=== PATIENT | female | born 1950 | race Caucasian/White ===

== ENCOUNTER 2016-10-11 07:31 | Day surgery (SDC) | payer OTHER, MEDICARE ==
[~2016-10-11] VITALS: Ht 170.2 cm; Wt 81.6 kg
[~2016-10-11 07:31] MED LIST: ASPI81TA82 PO; COZA100T PO; EZET10 PO; FISHCAP PO; FURO1TAB93 PO; GABA300C3 PO; METF500 PO; POTA75TA PO; VITA100018 PO
[2016-10-11 07:56] VITALS: BP 157/79; PULSE 83; RESP 20; TEMP 98.5; O2SAT 94
[2016-10-11] MEDS ORDERED: ceFAZolin 2 GM PREMIX 50 ML IV SCH (08:15)
[2016-10-11 08:32] LABS: APTT (PATIENT) 23.8 SEC (24.3-30.1); PROTHROMBIN TIME - PATIENT 10.8 SEC (9.8-11.6)
[2016-10-11 08:41] LABS: AUTOMATED NEUTROPHIL # 4.4 TH/MM3 (1.8-7.7); BASOPHIL % 0.2 % (0.0-2.0); EOSINOPHIL # 0.1 TH/MM3 (0-0.4); EOSINOPHIL % 2.6 % (0.0-4.0); HEMO FLAGS DIFF FINAL; LYMPHOCYTE # 0.6 TH/MM3 (1.0-4.8); MEAN CORPUSCULAR HEMOGLOBIN 30.6 PG (27.0-34.0); MEAN CORPUSCULAR HGB CONC 33.7 % (32.0-36.0); MONO % 7.9 % (0.0-8.0); NEUT % 79.3 % (16.0-70.0); PLATELET COUNT 193 TH/MM3 (150-450); RED BLOOD COUNT 4.62 MIL/MM3 (4.00-5.30); RED CELL DISTRIBUTION WIDTH 16.1 % (11.6-17.2); WHITE BLOOD COUNT 5.6 TH/MM3 (4.0-11.0)
[2016-10-11] MEDS ORDERED: fentaNYL CITRATE 250 MCG/5 ML AMP ONE (09:31)
[2016-10-11] MEDS ORDERED: MIDAZOLAM HCL 5 MG/5 ML VIAL ONE (09:31)
[2016-10-11] MEDS ORDERED: LIDOCAINE 1%/EPINEPHrine 1:100,000 SOLN 20 ML VIAL ONE (09:46)
[2016-10-11 10:15] VITALS: BP 145/72; PULSE 85; RESP 16; TEMP 98.4; O2SAT 93
--- NOTE | 2016-10-11 10:24 | PD.RAD ---
Post Procedure Progress Note Pre Procedure Diagnosis: (1) Anal cancer Post Procedure Diagnosis: (1) Anal cancer Procedure Date: Oct 11, 2016 Supervising Radiologist: Celestino Delgadillo JR Proceduralist/Assist: Beth Ivey, RT(R), Anu Chappell, RT(R) Anesthesia: Conscious Sedation Plan of Activity Patient to Unit: ROPU Patient Condition: Good See PACS Report for procedural detail/treatment Central Venous Access Device Procedure 1 Right Internal Jugular Infusaport Removal Findings: Port removed in its entirety. Plan F/U with IR or a physician in 10-14 days for a site check Jr. Elie,Celestino Agosto MD Oct 11, 2016 10:24
[2016-10-11 10:30] VITALS: BP 138/70; PULSE 82; RESP 16; O2SAT 93
[2016-10-11 11:30] VITALS: BP 138/70; PULSE 84; RESP 16; O2SAT 96
--- NOTE | 2016-10-18 23:31 | RADRPT ---
EXAM DATE/TIME: 10/11/2016 07:59 [facility] COMPARISON: No previous studies available for comparison. INDICATIONS : Patient with history of cancer completed treatment, no longer needs port. MEDICAL HISTORY : Hypercholesterolemia Fibroids Hep C COPD HTN Diabetes Hx anal cancer Hx ovarian cancer SURGICAL HISTORY : Colonoscopy with biopsy 2016 Hysterectomy Adhesions in 2009 ENCOUNTER: Subsequent ACUITY: 2 weeks PAIN SCORE: 7/10 LOCATION: Lower left back and leg SEDATION TIME: 15 minutes 1.) 4 mg midazolam (Versed) IV 2.) 200 mcg fentanyl (Sublimaze) IV Prophylactic antibiotics were administered with appropriate pre-procedure timing. Vancomycin within 2 hrs of procedure, Ancef (or alternative) within 1 hr of procedure. PROCEDURE : 1. Removal of [id number]. 2. Conscious sedation with continuous EKG and oximetry monitoring. The risk, benefits and potential complications of [id number] removal were discussed. Written conse nt was obtained. The patient was placed supine. The chest wall was prepped in sterile fashion. Full sterile techniqu e was used, including cap, mask, sterile gloves and gown, and a large sterile sheet. Hand hygiene an d 2% chlorhexidine and/or Betadine/alcohol prep was utilized per protocol for cutaneous antisepsis. The skin and subcutaneous tissues were infiltrated with local anesthetic solution. A small incision w as made, the subcutaneous pocket was opened. The port was dissected from the subcutaneous tissues and easily removed in one piece. The pocket incision was closed with subcuticular Vicryl suture. Steri -Strips were applied. Conscious sedation was performed with the prescribed dosages and duration as above in the presence of an independent trained radiology nurse to assist in the monitoring of the patient. EKG and oximetry remained stable throughout the procedure. The patient tolerated the procedure well and there were no complications. The patient was sent to post anesthesia recovery in stable condition. CONCLUSION: Uncomplicated port removal as above. Celestino Delgadillo Jr., MD on October 18, 2016 at 23:30 Board Certified Radiologist. This report was verified electronically.
== END 2016-10-11 12:15 | disposition home or self-care (01) ==
LOC: HROP 07:31 → HRIP 07:34 → HROP 12:15
PROVIDERS: ATTEND Internal Medicine Hematology & Oncology
DX: C21.0 Malignant neoplasm of anus, unspecified (principal)
CPT/HCPCS: 36590; 85025; 85610; 85730; 99152; J2250; J3010

== ENCOUNTER → 2017-12-05 | Outpatient (CLI) | payer OTHER ==
[~2017-12-05] MED LIST changes: -ASPI81TA82 PO; -EZET10 PO; -FISHCAP PO; -FURO1TAB93 PO; -GABA300C3 PO; -METF500 PO; -POTA75TA PO; -VITA100018 PO
--- NOTE | 2017-12-09 13:01 | RSPPFT ---
DATE OF PROCEDURE: 12/05/17 COMMENTS: Spirometry shows FVC of 2.2 at 70% of predicted, FEV1 of 1.5 at 61%, FEV1/FVC ratio is decreased. Flow is decreased at FEF 25, FEF 50, FEF 75 and FEF 25-75. There is no response after bronchodilator treatment. Lung volumes show residual volume is normal. TLC is normal. Diffusion capacity is normal. Flow volume loop indicates an obstructive pattern. Room air arterial blood gases show pH of 7.43, PCO2 of 44, PO2 of 81, BiCarb of 29 and Saturation at 94%. IMPRESSION: 1. Mild obstructive lung disease. 2. No response after bronchodilator treatment. 3 Normal lung volumes. 4. Normal diffusion capacity. 5. Blood gases show normal oxygenation. 6. 6-minute walk test shows no de-saturation.
== END ==
LOC: HRSP 09:54
PROVIDERS: ATTEND Family Medicine
DX: J44.9 Chronic obstructive pulmonary disease, unspecified (principal)
CPT/HCPCS: 36600; 82805; 94060; 94618; 94726; 94729

== ENCOUNTER 2018-01-06 20:20 | Emergency (ER) | payer OTHER ==
[~2018-01-06] VITALS: Ht 170.2 cm; Wt 100.0 kg
[2018-01-06 20:43] VITALS: PULSE 66; RESP 18; TEMP 97.7
[2018-01-06] MEDS ORDERED: blood pressure meds (20:53)
[2018-01-06 20:55] VITALS: BP 197/89; PULSE 61; PULSE 64; RESP 20; O2SAT 96
[2018-01-06] MEDS ORDERED: LOSA25TA PO (20:55)
[2018-01-06] MEDS ORDERED: EZET10 PO (20:55)
[2018-01-06 21:23] LABS: AUTOMATED NEUTROPHIL # 5.4 TH/MM3 (1.8-7.7); BASOPHIL % 0.2 % (0.0-2.0); EOSINOPHIL # 0.2 TH/MM3 (0-0.4); EOSINOPHIL % 2.7 % (0.0-4.0); HEMATOCRIT 44.8 % (35.0-46.0); HEMOGLOBIN 14.9 GM/DL (11.6-15.3); LYMPH % 15.1 % (9.0-44.0); LYMPHOCYTE # 1.1 TH/MM3 (1.0-4.8); MEAN CELL VOLUME 94.3 FL (80.0-100.0); MEAN CORPUSCULAR HEMOGLOBIN 31.3 PG (27.0-34.0); MEAN CORPUSCULAR HGB CONC 33.2 % (32.0-36.0); MEAN PLATELET VOLUME 8.4 FL (7.0-11.0); MONO % 8.2 % (0.0-8.0); MONOCYTE # 0.6 TH/MM3 (0-0.9); NEUT % 73.8 % (16.0-70.0); PLATELET COUNT 242 TH/MM3 (150-450); RED BLOOD COUNT 4.75 MIL/MM3 (4.00-5.30); RED CELL DISTRIBUTION WIDTH 14.9 % (11.6-17.2); WHITE BLOOD COUNT 7.4 TH/MM3 (4.0-11.0)
[2018-01-06 21:29] LABS: BICARBONATE 29.8 MEQ/L (21.0-32.0); BLOOD UREA NITROGEN 19 MG/DL (7-18); CALCIUM 9.1 MG/DL (8.5-10.1); CHLORIDE 101 MEQ/L (98-107); CREATININE 1.02 MG/DL (0.50-1.00); GLOMERULAR FILTRATION RATE 54 ML/MIN (>89); GLUCOSE,RANDOM 191 MG/DL (74-106); SODIUM (NA) 139 MEQ/L (136-145); TROPONIN I LESS THAN 0.02 NG/ML (0.02-0.05)
--- NOTE | 2018-01-06 21:39 | PD ---
HPI Chief Complaint: Chest Pain Time Seen by Provider: 20:51 Travel History International Travel<30 days: No Contact w/Intl Traveler<30days: No Traveled to known affect area: No History of Present Illness HPI 67-year-old female with PMH of DM, HTN, rectal cancer, emphysema presents the ED for evaluation of sharp, gradual onset, 10/10 epigastric pain, radiating to the back. Onset at 4 PM this afternoon while watching television. Patient denies associated palpitations, shortness of breath, nausea, vomiting, diaphoresis. She states that she thought it was heartburn, took a few rounds of Tums over the course of a few hours. Pain gradually resolved spontaneously after about 3 or 4 hours. Patient states that she recently had an EKG and electrocardiogram. She states EF was "normal." She has never had a stress test. She is a 55 year plus smoker. She was recently diagnosed with emphysema , using duo nebs at home as needed. PFSH Past Medical History Hx Anticoagulant Therapy: No Arthritis: Yes Blood Disorders: No Cancer: No Cardiovascular Problems: Yes (HTN, CHOL) High Cholesterol: Yes Diabetes: Yes Patient Takes Glucophage: No Diminished Hearing: No Endocrine: No Genitourinary: No Hepatitis: Yes (C) Hypertension: Yes Immune Disorder: No Musculoskeletal: Yes (SCIATICA) Neurologic: Yes (, SCIATICA) Psychiatric: No Reproductive: No Respiratory: No Immunizations Current: No Tetanus Vaccination: Unknown Influenza Vaccination: No ?: Not Past Surgical History AICD: No Gynecologic Surgery: Yes (adhesions, HYSTERECTOMY) Hysterectomy: Yes Joint Replacement: No Pacemaker: No Other Surgery: Yes Social History Alcohol Use: No Tobacco Use: Yes (1 ppd) Substance Use: No Allergies-Medications (Allergen,Severity, Reaction): Coded Allergies: No Known Allergies (Verified Adverse Reaction, Unknown, 01/06/18) Reported Meds & Prescriptions Reported Meds & Active Scripts Active Reported Zetia (Ezetimibe) 10 Mg Tab 10 Mg PO DAILY Losartan (Losartan Potassium) 25 Mg Tab 25 Mg PO DAILY [blood pressure meds] Review of Systems Except as stated in HPI: all other systems reviewed are Neg Physical Exam Narrative GENERAL: Pleasant, obese white female no acute distress. SKIN: Focused skin assessment warm/dry. HEAD: Atraumatic. Normocephalic. EYES: Pupils equal and round. No scleral icterus. No injection or drainage. ENT: No nasal bleeding or discharge. Mucous membranes pink and moist. NECK: Trachea midline. No JVD. CARDIOVASCULAR: Regular rate and rhythm. No murmur appreciated. RESPIRATORY: No accessory muscle use. Clear to auscultation. Breath sounds equal bilaterally. GASTROINTESTINAL: Abdomen soft, non-tender, nondistended. Hepatic and splenic margins not palpable. MUSCULOSKELETAL: No obvious deformities. No clubbing. No cyanosis. No edema. NEUROLOGICAL: Awake and alert. No obvious cranial nerve deficits. Motor grossly within normal limits. Normal speech. PSYCHIATRIC: Appropriate mood and affect; insight and judgment normal. Data Data Last Documented VS Vital Signs Date Time Temp Pulse Resp B/P (MAP) Pulse Ox O2 Delivery O2 Flow Rate FiO2 01/06/18 22:19 01/06/18 22:19 62 18 95 Room Air 01/06/18 20:43 97.7 Orders Orders Electrocardiogram (01/06/18 20:43) Complete Blood Count With Diff (01/06/18 20:43) Basic Metabolic Panel (Bmp) (01/06/18 20:43) Ckmb (Isoenzyme) Profile (01/06/18 20:43) Troponin I (01/06/18 20:43) Chest, Single Ap (01/06/18 20:43) Iv Access Insert/Monitor (01/06/18 20:43) Ecg Monitoring (01/06/18 20:43) Oxygen Administration (01/06/18 20:43) Oximetry (01/06/18 20:43) Aspirin (Aspirin) (01/06/18 21:45) Nitroglycerin 2% Oint (Nitroglycerin 2% (01/06/18 21:45) Losartan (Cozaar) (01/06/18 21:45) Ed Discharge Order (01/06/18 22:31) Labs Laboratory Tests Test 01/06/18 20:45 White Blood Count 7.4 TH/MM3 Red Blood Count 4.75 MIL/MM3 Hemoglobin 14.9 GM/DL Hematocrit 44.8 % Mean Corpuscular Volume 94.3 FL Mean Corpuscular Hemoglobin 31.3 PG Mean Corpuscular Hemoglobin Concent 33.2 % Red Cell Distribution Width 14.9 % Platelet Count 242 TH/MM3 Mean Platelet Volume 8.4 FL Neutrophils (%) (Auto) 73.8 % Lymphocytes (%) (Auto) 15.1 % Monocytes (%) (Auto) 8.2 % Eosinophils (%) (Auto) 2.7 % Basophils (%) (Auto) 0.2 % Neutrophils # (Auto) 5.4 TH/MM3 Lymphocytes # (Auto) 1.1 TH/MM3 Monocytes # (Auto) 0.6 TH/MM3 Eosinophils # (Auto) 0.2 TH/MM3 Basophils # (Auto) 0.0 TH/MM3 CBC Comment DIFF FINAL Differential Comment Blood Urea Nitrogen 19 MG/DL Creatinine 1.02 MG/DL Random Glucose 191 MG/DL Calcium Level 9.1 MG/DL Sodium Level 139 MEQ/L Potassium Level 3.6 MEQ/L Chloride Level 101 MEQ/L Carbon Dioxide Level 29.8 MEQ/L Anion Gap 8 MEQ/L Estimat Glomerular Filtration Rate 54 ML/MIN Total Creatine Kinase 84 U/L Troponin I LESS THAN 0.02 NG/ML MDM Medical Decision Making Medical Screen Exam Complete: Yes Emergency Medical Condition: Yes Differential Diagnosis Chest pain versus angina versus ACS versus GERD versus PUD versus other Narrative Course 67-year-old female with PMH of DM, HTN, rectal cancer, emphysema presents the ED for evaluation of sharp, gradual onset, 10/10 epigastric pain, radiating to the back. Onset at 4 PM this afternoon while watching television. Patient states that she recently had an EKG and electrocardiogram. She states EF was "normal." She has never had a stress test. She is a 55 year plus smoker. Pulse 66, BP 197/89, O2 sats 96% on room air on presentation. On exam this is a pleasant, obese white female no acute distress. No appreciable M/R/G. No tenderness to palpation in the epigastric area or precordium. Patient was administered ASA, 25 mg losartan, 1 inch Nitropaste was applied to the chest. EKG rate 60, sinus rhythm. AZ interval 166, QRS 90, QTc 420 ms. Normal axis. No acute ST changes. Reviewed by Dr. Odom and Dr. Ritter. CXR: No acute cardiopulmonary disease per radiology read. Cardiac enzymes negative 1. No concerning abnormalities of the CBC. CMP: BUN 19, creatinine 0.02. Glucose 191. I discussed the results of the workup with the patient and recommended chest pain center admission for further evaluation. She declined any further intervention including the aspirin, losartan and Nitropaste. Patient states that she is feeling better now, does not want to be admitted to the hospital. I explained the risks of leaving, up to including . Patient acknowledged understanding of these risks but still chose to leave AGAINST MEDICAL ADVICE. Diagnosis Primary Impression: Epigastric pain Referrals: [facility] Additional Instructions: Follow-up with the yolk spray drier as discussed. Return to the ED for worsening symptoms or any urgent or emergent medical condition. Disposition: 07 AGAINST MEDICAL ADVICE Condition: Stable Rosanna Montez Jan 06, 2018 21:39
--- NOTE | 2018-01-06 21:44 | RADRPT ---
EXAM DATE: 01/06/2018 9:41 PM EDT AGE/SEX: 67 years / Female INDICATIONS: Chest pain. CLINICAL DATA: This is the patient's initial encounter. Patient reports that signs and symptoms have been present for 1 day and indicates a pain score of 1/10. MEDICAL/SURGICAL HISTORY: Chronic obstructive pulmonary disease. Hypertension. Diabetes jack rojass type II. None. COMPARISON: No prior exams available for comparison. FINDINGS: The lungs are clear without infiltrate, nodule, or mass. There is no appreciable pleural effusion fo r technique. Heart and mediastinum are unremarkable. CONCLUSION: No acute cardiopulmonary disease. Electronically signed by: David Vasquez MD 01/06/2018 9:43 PM EDT
[2018-01-06] MEDS ORDERED: NITROGLYCERIN 2% OINT 1 GM PACKET TOP ONE (21:45)
[2018-01-06] MEDS ORDERED: ASPIRIN 325 MG TAB PO ONE (21:45)
[2018-01-06] MEDS ORDERED: LOSARTAN 25 MG TAB PO ONE (21:45)
[2018-01-06 22:19] VITALS: BP 189/83; PULSE 62; RESP 18; O2SAT 95
--- NOTE | 2018-01-07 05:09 | EKG ---
Date Performed: 01/06/2018 Time Performed: 20:35:29 PTAGE: 67 years EKG: Sinus rhythm NORMAL ECG No significant change from prior electrocardiogram. DOCTOR: Guicho Adorno Interpretating Date/Time 01/07/2018 05:08:36
== END 2018-01-06 22:48 | disposition left against medical advice (07) ==
LOC: NEPE 20:20
DX: R10.13 Epigastric pain (principal); F17.200 Nicotine dependence, unspecified, uncomplicated; E78.00 Pure hypercholesterolemia, unspecified; I10 Essential (primary) hypertension
CPT/HCPCS: 71045; 80048; 82550; 84484; 85025; 93005